=== PATIENT | female | born 1995 | race Caucasian/White ===

== ENCOUNTER → 2024-08-14 | Outpatient (CLI) | payer OTHER | LOC: LAB SHORT 10:39 → LAB 10:39 | PROVIDERS: Physician Assistant | DX: Z12.4 Encounter for screening for malignant neoplasm of cervix (principal) | CPT/HCPCS: G0123 ==

== ENCOUNTER 2025-02-26 14:51 | Observation (INO) | payer OTHER ==
[~2025-02-26] VITALS: Ht 162.6 cm; Wt 153.6 kg
[2025-02-26] VITALS (35 sets, daily range): BP systolic 106–171; BP diastolic 56–111
[2025-02-26 16:08] LABS: BASOPHILS ABSOLUTE AUTO 0.04 K/mm3 (0.00-0.23); BASOPHILS PERCENT AUTO 0 % (0-2); EOSINOPHILS ABSOLUTE AUTO 0.18 K/mm3 (0.00-0.68); EOSINOPHILS PERCENT AUTO 2 % (0-6); Hematocrit 40.3 % (33.0-51.0); Hemoglobin 13.6 g/dL (11.5-16.0); IMMATURE GRAN ABSOLUTE AUTO 0.12 K/mm3 (0.00-0.10); IMMATURE GRAN PERCENT AUTO 1 % (0-1); LYMPHOCYTES ABSOLUTE AUTO 1.89 K/mm3 (0.84-5.20); LYMPHOCYTES PERCENT AUTO 17 % (21-46); MONOCYTES ABSOLUTE AUTO 0.90 K/mm3 (0.16-1.47); MONOCYTES PERCENT AUTO 8 % (4-13); Mean Corpuscular HGB Conc 33.7 g/dL (31.5-36.5); Mean Corpuscular Volume 93 fL (80-100); NEUTROPHILS ABSOLUTE AUTO 7.95 K/mm3 (1.96-9.15); NEUTROPHILS PERCENT AUTO 72 % (41-73); NRBC ABSOLUTE 0.00 K/mm3 (0.00-0.02); NRBC Auto 0.0 /100 WBC (0.0-0.2); Platelet Count 287 K/mm3 (150-400); RDW Coefficient Variation 12.5 % (11.7-14.2); RDW Standard Deviation 42.6 fL (35.1-46.3)
[2025-02-26 16:50] LABS: Alanine Aminotransfer (ALT/SGP 15.0 U/L (12-78); Albumin, Blood 2.6 g/dL (3.4-5.0); Albumin/Globulin Ratio 0.7 (0.8-1.8); Anion Gap 10.0 mmol/L (3-11); Aspartate Aminotrans (AST/SGOT 16.0 U/L (12-37); Bilirubin, Total 0.6 mg/dL (0.1-1.0); Blood Urea Nitrogen 11.0 mg/dL (8-24); CO2, Blood 25.0 mmol/L (21-32); Calcium, Blood 9.4 mg/dL (8.5-10.1); Chloride, Blood 104.0 mmol/L (98-108); Creatinine, Blood 0.53 mg/dL (0.40-1.00); Globulin, Blood 3.6 g/dL (2.2-4.0); Glucose, Blood 83.0 mg/dL (70-99); Potassium, Blood 3.9 mmol/L (3.5-5.5); Sodium, Blood 135.0 mmol/L (136-145); Total Protein, Blood 6.2 g/dL (6.4-8.2)
[2025-02-26 17:22] LABS: Creatinine, Urine Random 87.3 mg/dL (27.00-270.00); Protein, Urine Random 20.5 mg/dL (0.0-11.9); Protein/Creat Ratio, Ur Random 0.2
[2025-02-26] MEDS ORDERED: Magnesium Sul 4 GM/Water100 ML 100 ML IV ONE ×2 (18:15→18:20)
[2025-02-26] MEDS ORDERED: Magnesium Sulf 2 GM/Water 50ML 50 ML IV ONE (18:37)
[2025-02-26] MEDS ORDERED: Labetalol HCL 5 MG/ML 4ML Injection (Single Dose) ONE (18:58)
[2025-02-26 19:26] LABS: Fibrinogen 639.0 mg/dL (170-430); Prothrombin Time Results 10.1 Sec (9.7-11.5)
[2025-02-26 19:32] LABS: Creatinine, Blood 0.52 mg/dL (0.40-1.00); Lactate Dehydrogenase (Ld),Bld 214.0 U/L (100-240)
[2025-02-26] MEDS ORDERED: Betamethasone Sod Phos/Acetate 6 MG/ML 5ML VIAL IM ONE (19:45)
[2025-02-26] MEDS ORDERED: PRENATAL TABLE1 EAC2 PO (21:15)
[2025-02-26] MEDS ORDERED: Ondansetron HCl 2 MG / ML 2ML Vial IV PRN (21:15)
[2025-02-26] MEDS ORDERED: ASPI81CH PO (21:16)
[2025-02-26] MEDS ORDERED: MAG GLYCINATE100 MG (21:17)
[2025-02-27] VITALS (45 sets, daily range): BP systolic 108–144; BP diastolic 66–89
[2025-02-27] MEDS ORDERED: Betamethasone Sod Phos/Acetate 6 MG/ML 5ML VIAL IM ONE (20:30)
[2025-02-28] VITALS (10 sets, daily range): BP systolic 131–165; BP diastolic 79–93
--- NOTE | 2025-02-28 10:39 | NUR ---
02/28/25 1015 given dc instructions written and verbal with pt and both verbalizing understanding. Pt to continue on Labetalol 200 mg yet change to TID starting at 1500 today, and to check her BP with her home cuff first and to call MD with any significant changes. Home cuff was brought in and shown how to use by RN and was withing same range at [facility] monitor cuff.
== END 2025-02-28 10:20 | disposition home or self-care (01) ==
LOC: OBS 14:51 → BC 14:51 → OBS 18:21 → BC 18:22
PROVIDERS: ADMIT Advanced Practice Midwife
DX: O13.1 Gestational [pregnancy-induced] hypertension without significant proteinuria, first trimester (principal); O99.211 Obesity complicating pregnancy, first trimester; Z3A.13 13 weeks gestation of pregnancy
CPT/HCPCS: 36415; 59025; 76816; 80053; 82565; 82570; 83615; 84156; 85025; 85384; 85610; 85730; 87081; 87150; 96365; 96366; 96372; 96374; 96375; 96376; 99214; A9270; J0702; J3475; J7120

== ENCOUNTER 2025-03-10 18:50 | Inpatient (IN) | payer OTHER, BC ==
[~2025-03-10] VITALS: Ht 162.6 cm; Wt 150.0 kg
[~2025-03-10 18:50] MED LIST: ASPI81CH PO; MAG GLYCINATE100 MG; PRENATAL TABLE1 EAC2 PO
[2025-03-10 19:17] VITALS: BP 112/74
[2025-03-10] MEDS ORDERED: FentaNYL Citrate 50 MCG/ML 2 ML Injection ONE (19:47)
[2025-03-10] MEDS ORDERED: OXYTOCIN/RINGER'S LACTATE 500 ML IV SCH (19:50)
[2025-03-10] MEDS ORDERED: FentaNYL 2mcg/ml-Bup 0.1% Epd 250 ML EPI PRN (20:00)
[2025-03-10] MEDS ORDERED: ePHEDrine Sulfate 50 MG/ML 1ML Injection XX PRN (20:00)
[2025-03-10] MEDS ORDERED: FentaNYL Citrate 50 MCG/ML 2 ML Injection IV PRN (20:05)
[2025-03-10] MEDS ORDERED: Oxytocin 10 Unit / ML Vial IM PRN (20:15)
[2025-03-10] MEDS ORDERED: Carboprost Tromethamine 250 MCG/ML 1ML Amp IM PRN (20:15)
[2025-03-10] MEDS ORDERED: Ondansetron HCl 2 MG / ML 2ML Vial IV PRN (20:15)
[2025-03-10 20:28] LABS: BASOPHILS ABSOLUTE AUTO 0.04 K/mm3 (0.00-0.23); BASOPHILS PERCENT AUTO 0 % (0-2); EOSINOPHILS ABSOLUTE AUTO 0.21 K/mm3 (0.00-0.68); EOSINOPHILS PERCENT AUTO 2 % (0-6); Hematocrit 38.9 % (33.0-51.0); Hemoglobin 13.4 g/dL (11.5-16.0); IMMATURE GRAN ABSOLUTE AUTO 0.18 K/mm3 (0.00-0.10); IMMATURE GRAN PERCENT AUTO 2 % (0-1); LYMPHOCYTES ABSOLUTE AUTO 2.13 K/mm3 (0.84-5.20); LYMPHOCYTES PERCENT AUTO 18 % (21-46); MONOCYTES ABSOLUTE AUTO 1.25 K/mm3 (0.16-1.47); MONOCYTES PERCENT AUTO 11 % (4-13); Mean Corpuscular HGB Conc 34.4 g/dL (31.5-36.5); Mean Corpuscular Volume 92 fL (80-100); NEUTROPHILS ABSOLUTE AUTO 7.97 K/mm3 (1.96-9.15); NEUTROPHILS PERCENT AUTO 68 % (41-73); NRBC ABSOLUTE 0.00 K/mm3 (0.00-0.02); NRBC Auto 0.0 /100 WBC (0.0-0.2); RDW Coefficient Variation 13.0 % (11.7-14.2); RDW Standard Deviation 42.8 fL (35.1-46.3)
[2025-03-10 20:29] LABS: Platelet Count 297 K/mm3 (150-400)
[2025-03-10 21:32] LABS: Albumin, Blood 2.7 g/dL (3.4-5.0); Albumin/Globulin Ratio 0.7 (0.8-1.8); Anion Gap 10.0 mmol/L (3-11); Blood Urea Nitrogen 14.0 mg/dL (8-24); CO2, Blood 24.0 mmol/L (21-32); Calcium, Blood 9.4 mg/dL (8.5-10.1); Chloride, Blood 105.0 mmol/L (98-108); Creatinine, Blood 0.49 mg/dL (0.40-1.00); Globulin, Blood 4.1 g/dL (2.2-4.0); Glucose, Blood 73.0 mg/dL (70-99); Potassium, Blood 4.6 mmol/L (3.5-5.5); Sodium, Blood 134.0 mmol/L (136-145); Total Protein, Blood 6.8 g/dL (6.4-8.2)
[2025-03-10 21:33] LABS: Alanine Aminotransfer (ALT/SGP 19.0 U/L (12-78); Aspartate Aminotrans (AST/SGOT 33.0 U/L (12-37); Bilirubin, Total 0.5 mg/dL (0.1-1.0)
[2025-03-10 21:53] LABS: Creatinine, Urine Random 178.0 mg/dL (27.00-270.00); Protein, Urine Random 19.9 mg/dL (0.0-11.9); Protein/Creat Ratio, Ur Random 0.1
[2025-03-10 22:14] VITALS: BP 137/82
[2025-03-10] MEDS ORDERED: NS 500 ML IV PRN (22:50)
[2025-03-11] VITALS (42 sets, daily range): BP systolic 110–169; BP diastolic 55–105
--- NOTE | 2025-03-11 19:42 | NUR ---
[facility] charting reviewed
[2025-03-12] VITALS (12 sets, daily range): BP systolic 108–155; BP diastolic 58–84
[2025-03-12] MEDS ORDERED: Benzocaine Topical Anesthetic Spray 60GM TOP PRN (00:10)
[2025-03-12] MEDS ORDERED: Carboprost Tromethamine 250 MCG/ML 1ML Amp IM PRN (00:10)
[2025-03-12] MEDS ORDERED: Methylergonovine Maleate 0.2MG / ML 1ML Amp IM PRN (00:10)
[2025-03-12] MEDS ORDERED: OXYTOCIN/RINGER'S LACTATE 500 ML IV SCH (00:15)
[2025-03-12] MEDS ORDERED: Oxytocin 10 Unit / ML Vial IM ONE (00:15)
[2025-03-12] MEDS ORDERED: Witch Hazel/Glycerin PADS TOP PRN (00:15)
[2025-03-12] MEDS ORDERED: Ketorolac Tromethamine 30mg Vial IV PRN (01:50)
[2025-03-12] MEDS ORDERED: Ketorolac Tromethamine 30mg Vial IV SCH (06:00)
[2025-03-12] MEDS ORDERED: Prenatal Vit/FE Fumarate/FA 1 Tab PO SCH (09:00)
[2025-03-12] MEDS ORDERED: IBUP800 PO (21:03)
[2025-03-12] MEDS ORDERED: ACET500 PO (21:03)
--- NOTE | 2025-03-12 23:20 | NUR ---
DISCHARGE NOTE; PT TO DC NOW. PT HAS BEEN UP AND VOIDED, BLEEDING IS WNL. PT DENIES ANY HEADACHE, BLURRED VISION, EPIGASTRIC PAIN OR OR N/V. DISCHARGE TEACHING PROVIDED TO PT AND HER SPOUSE, DENIES ANY FURTHER QUESTION AT THIS TIME. PT GIVEN DISCHARGE PACKET AND PPFU APPT CARD. PT TO DC NOW WITH NB AND SPOUSE.
== END 2025-03-12 23:27 | disposition home or self-care (01) | DRG 807 ==
LOC: OBS 18:50 → BC 18:50 → OBS 19:32 → BC 19:36
PROVIDERS: ADMIT Advanced Practice Midwife
PROC: 0HQ9XZZ Repair Perineum Skin, External Approach (ICD-10-PCS; principal; 2025-03-12)
PROC: 3E0R3BZ Introduction of Anesthetic Agent into Spinal Canal, Percutaneous Approach (ICD-10-PCS; principal; 2025-03-12)
PROC: 10E0XZZ Delivery of Products of Conception, External Approach (ICD-10-PCS; principal; 2025-03-12)
PROC: 00HU33Z Insertion of Infusion Device into Spinal Canal, Percutaneous Approach (ICD-10-PCS; principal; 2025-03-12)
PROC: 0U7C7DJ Dilation of Cervix with Intraluminal Device, Temporary, Via Natural or Artificial Opening (ICD-10-PCS; principal; 2025-03-12)
PROC: 3E033VJ Introduction of Other Hormone into Peripheral Vein, Percutaneous Approach (ICD-10-PCS; principal; 2025-03-12)
DX: O13.4 Gestational [pregnancy-induced] hypertension without significant proteinuria, complicating childbirth (principal); Z37.0 Single live birth; O99.214 Obesity complicating childbirth; O99.344 Other mental disorders complicating childbirth; F41.8 Other specified anxiety disorders; O70.0 First degree perineal laceration during delivery; Z79.82 Long term (current) use of aspirin; Z79.899 Other long term (current) drug therapy; Z3A.37 37 weeks gestation of pregnancy
CPT/HCPCS: 36415; 51702; 59070; 59200; 80053; 82570; 84156; 85025; 86850; 86900; 86901; 86923; A9270; J1885; J2590; J3010; J7120